=== PATIENT | female | born 1965 | race Caucasian/White ===

== ENCOUNTER → 2016-12-31 | Outpatient (CLI) | payer BC ==
[~2016-12-31] MED LIST: BLOOD PRESSURE MED; CPR500 PO; LRT5 PO; PHEN-876 PO; SYN175 PO
--- NOTE | 2016-12-31 13:07 | MAMMOGRAPHY REPORT ---
BILATERAL DIGITAL DIAGNOSTIC MAMMOGRAM TOMOSYNTHESIS WITH CAD AND TARGETED BILATERAL ULTRASOUND: 12/14 CLINICAL HISTORY: The patient reports an area of pain in her right superior breast which was previou sly intermittent but is now more constant. She notes that her provider felt a possible lump in the region of the pain. She also notes intermittent left lateral breast pain. TECHNIQUE: Breast tomosynthesis in addition to standard 2D mammography was performed. Current study was also evaluated with a Computer Aided Detection (CAD) system. Bilateral CC and MLO 2-D and gunnar synthesis images were obtained. COMPARISON: Comparison is made to exam dated: 09/16/2004 mammogram - [facility]. BREAST COMPOSITION: The tissue of both breasts is almost entirely fatty. FINDINGS: A triangle marker rodriguez the site of the palpable lump and pain in the right upper outer q uadrant. There are no suspicious masses, calcifications, or areas of architectural distortion noted in either breast mammographically. There has been no significant interval change compared to the 2 exam. Targeted ultrasound was performed of the area of pain and associated lump pointed out by the patient . She could not pinpoint the exact location of the pain and lump although pointed to the right supe rior breast at approximately 11 to 12:00, centered around 10 cm from the nipple. No suspicious mass es or other suspicious sonographic abnormalities are evident. Incidentally noted in the right breas t at 11:00, 7 cm from the nipple, is an oval anechoic circumscribed 4 x 3 mm mass, which is consiste nt with a benign simple cyst versus focal duct ectasia. Targeted ultrasound was performed of the area of pain in the left breast pointed out by the patient, in the left breast at approximately 2 to 3:00, centered around 9 cm from the nipple. Sonographical ly normal tissue is seen, without evidence of a mass or other suspicious sonographic abnormality. IMPRESSION: ACR BI-RADS CATEGORY 2: BENIGN, TARGETED ULTRASOUND ACR BI-RADS CATEGORY 2: BENIGN No suspicious mammographic or sonographic abnormality at the site of bilateral breast pain and possi ble right breast lump. There is no mammographic or targeted sonographic evidence of malignancy. Re commend clinical follow-up for bilateral breast pain and right breast lump, and recommend routine bi lateral screening mammograms in one year. The patient has been verbally notified of the results. Approximately 10% of breast cancers are not detected with mammography. A negative mammographic repor t should not delay biopsy if a clinically suggestive mass is present. Tina Morales M.D. ah/:12/31/2016 10:25:40 Electrolytic De Scaler: Olivia RIVERA)Norah), [facility] letter sent: Normal 1/2 BI-RADS Code: ACR BI-RADS Category 2: Benign Ultrasound BI-RADS: ACR BI-RADS Category 2: Benign
== END | disposition home or self-care (01) ==
LOC: C.MAMM 08:51
PROVIDERS: ATTEND Obstetrics & Gynecology
DX: N64.4 Mastodynia (principal); N63 Unspecified lump in breast

== ENCOUNTER → 2017-07-13 | Outpatient (CLI) | payer BC | END | disposition home or self-care (01) | LOC: C.PAPS 14:03 | PROVIDERS: ATTEND Obstetrics & Gynecology | DX: N87.0 Mild cervical dysplasia (principal) ==